=== PATIENT | female | born 1970 | race Caucasian/White ===

== ENCOUNTER 2019-04-16 19:29 | Emergency (ER) | payer OTHER ==
[~2019-04-16] VITALS: Ht 162.6 cm; Wt 65.3 kg
[~2019-04-16 19:29] MED LIST: LYRICA150 MG PO; ULTRAM50 MG PO
[2019-04-16] MEDS ORDERED: CIPRO500 MG PO (22:16)
== END 2019-04-16 22:54 | disposition home or self-care (01) ==
LOC: ER 19:29
DX: S61.421A Laceration with foreign body of right hand, initial encounter (principal); W45.8XXA Other foreign body or object entering through skin, initial encounter; Y93.89 Activity, other specified; Y92.89 Other specified places as the place of occurrence of the external cause; Y99.8 Other external cause status